=== PATIENT | female | born 1990 | race Caucasian/White ===

== ENCOUNTER 2018-11-14 07:30 | Emergency (ER) | payer MEDICAID ==
[~2018-11-14] VITALS: Ht 162.6 cm; Wt 89.6 kg
[2018-11-14 07:35] VITALS: BP 111/73
--- NOTE | 2018-11-14 07:42 | NUR ---
DR. CISNEROS AT BEDSIDE EVALUATING PATIENT.
--- NOTE | 2018-11-14 07:42 | NUR ---
PATIENT AMBULATED TO BED 5 AT THIS TIME.
--- NOTE | 2018-11-14 07:50 | NUR ---
C/O LL BACK PAIN RADIATING DOWN L LEG 11/18 X 2 DAYS. PT DENIES INJURY/DYSURIA. NO OBVIOUS DEFORMITY NOTED. BED IN LOW POSITION, SIDE RAIL UP X2.
[2018-11-14] MEDS ORDERED: LIDOCAINE 1% 500 MG/50 ML VIAL INJ SCH (08:05)
[2018-11-14] MEDS ORDERED: LIDOCAINE MPF 1% - 5 mL VIAL 10 ML ONE (08:22)
[2018-11-14] MEDS ORDERED: LIDOCAINE MPF 1% 5mL VIAL INJ ONE ×2 (08:30)
[2018-11-14] MEDS ORDERED: KETOROLAC 60 MG/2 ML VIAL IM ONE (08:50)
[2018-11-14 09:08] VITALS: BP 111/73
== END 2018-11-14 09:08 | disposition home or self-care (01) ==
LOC: MED 07:30
DX: M62.830 Muscle spasm of back (principal); Z98.890 Other specified postprocedural states
CPT/HCPCS: 20552; 81002; 81025; 96372; 99283; J1885; J2001